=== PATIENT | female | born 1990 ===

== ENCOUNTER 2020-05-29 18:18 | Outpatient (CLI) | payer OTHER | END 2020-05-30 09:37 | disposition home or self-care (01) | LOC: OBS/DEL 18:18 | PROVIDERS: ATTEND Obstetrics & Gynecology | DX: O99.612 Diseases of the digestive system complicating pregnancy, second trimester (principal); K80.80 Other cholelithiasis without obstruction; O26.892 Other specified pregnancy related conditions, second trimester; M54.5 Low back pain ==